=== PATIENT | female | born 1955 | race Caucasian/White ===

== ENCOUNTER → 2018-03-22 | Outpatient (CLI) | payer OTHER ==
[~2018-03-22] MED LIST: GADOBUTROL 10 ML VIAL IVP ONE
== END ==
LOC: FIMAGING 11:53
PROVIDERS: ATTEND Internal Medicine Hematology & Oncology
DX: Z08 Encounter for follow-up examination after completed treatment for malignant neoplasm (principal); Z85.3 Personal history of malignant neoplasm of breast
CPT/HCPCS: 0159T; A9585; C8908

== ENCOUNTER 2018-11-13 14:04 | Day surgery (SDC) | payer OTHER ==
--- NOTE | 2018-11-13 14:38 | EDPHY ---
H & P Stated Complaint: Low-grade fever x 2 days, chills, RLQ abdominal pain w/ nausea. Time Seen by Provider: 11/13/18 14:28 HPI/ROS: CHIEF COMPLAINT: Abdominal pain HISTORY OF PRESENT ILLNESS: 63-year-old female via private vehicle complaining right lower quadrant abdominal pain, anorexia since yesterday. Reproducible pain with palpation. Subjective fever. No back or flank pain. No urinary abnormality. No diarrhea. Passing gas as normal. Last oral intake was last evening PRIMARY CARE PROVIDER: REVIEW OF SYSTEMS: 10 systems reviewed and negative with the exception of the elements mentioned in the history of present illness PAST MEDICAL & SURGICAL HISTORY: Bilateral oophorectomy. Metastatic breast cancer. SOCIAL HISTORY: Nonsmoker . Local physician. PHYSICAL EXAM (Prior to examination, patient consented to physical exam, hands were washed and my usual and customary physical exam procedures followed) 1) GENERAL: [Well-developed, well-nourished, alert and oriented. Appears nontoxic 2) HEAD: Normocephalic, atraumatic 3) HEENT: Pupils equal, round, reactive to light bilaterally. Sclera anicteric. 4) NECK: Full range of motion, no meningeal signs. 5) LUNGS: Clear auscultation bilaterally, no wheezes, no rhonchi, no retractions. 6) HEART: Regular rate and rhythm, no murmur, no heave, no gallop. 7) ABDOMEN: No guarding, focally tender to palpation right lower quadrant, positive McBurney's, positive Rovsing's negative Wong's,, negative peritoneal sign, 8) MUSCULOSKELETAL: Moving all extremities, no focal areas of tenderness, no obvious trauma. No peripheral edema or discoloration. 9) BACK: No CVA tenderness, no midline vertebral tenderness, no fluctuance, no step-off, no obvious trauma, no visual or palpable abnormality. 10) SKIN: No rash, no petechiae. 11) Psychiatric: Patient is oriented X 3, there is no agitation. DIFFERENTIAL DIAGNOSIS: My differential diagnosis includes, but is not limited to, acute appendicitis, acute cholecystitis, bowel obstruction, acute pancreatitis, gastritis. The patient understands that this diagnosis is provisional and can never be 100% accurate. This is a partial list of diagnoses considered. These considerations are based on history, physical exam, past history and reassessment. - Personal History Current Tetanus Diphtheria and Acellular Pertussis (TDAP): Yes - Medical/Surgical History Hx Asthma: No Hx Chronic Respiratory Disease: No Hx Diabetes: No Hx Cardiac Disease: No Hx Renal Disease: No Hx Cirrhosis: No Hx Alcoholism: No Hx HIV/AIDS: No Hx Splenectomy or Spleen Trauma: No Other PMH: metastatic breast cancer in remission, bilateral oopherectomy 2009. - Social History Smoking Status: Never smoked Constitutional: Initial Vital Signs Temperature (C) 37.5 C 11/13/18 14:15 Heart Rate 89 11/13/18 14:15 Respiratory Rate 16 11/13/18 14:15 Blood Pressure 117/75 11/13/18 14:15 O2 Sat (%) 97 11/13/18 14:15 O2 Delivery Mode Room Air Allergies/Adverse Reactions: No Known Allergies Allergy (Unverified 04/19/09 08:19) Medical Decision Making - Diagnostics Imaging Results: Imaging Impressions Abdomen CT 11/13/18 15:03 Impression: 1. Acute appendicitis with periappendiceal inflammation and some appendicoliths along the proximal portion of the appendix. There is no mechanical bowel obstruction, free fluid, or rim-enhancing abscess. 2. Small inferior pericardial recess effusion. 3. 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 In this patient with a prior history of lobular breast cancer, if there is further clinical concern regarding occult osseous metastases, a bone scan could be considered. 4. Status post bilateral oophorectomies. Findings were discussed with Kellee Jha PA-C at 16:06, on 11/13/2018. ED Course/Re-evaluation: 4:08 p.m.: CT of the abdomen pelvis interpreted by staff radiologist, with images reviewed myself, conveyed to me at this time is positive for acute appendicitis without perforation or abscess. Multiple appendicoliths seen. Patient remains NPO since last night. Discussed the imaging results with the patient. Will initiate antibiotics, IV antibiotics and consult surgery. Care of patient under supervision of secondary supervising physician Dr Rondon with whom I discussed case. 4:20 p.m.: Phone consultation with Dr. Andi Damico who will come to the ER to evaluate patient. - Data Points Laboratory Results: Laboratory Results 11/13/18 14:40 11/13/18 14:40 11/13/18 11/13/18 11/13/18 15:06 14:51 14:40 WBC RBC Hgb POC Hgb 14.3 gm/dL gm/dL (12.6-16.3) Hct POC Hct 42 % % (38-47) MCV MCH MCHC RDW Plt Count MPV Neut % (Auto) Lymph % (Auto) [place] % (Auto) Eos % (Auto) Baso % (Auto) Nucleat RBC Rel Count Absolute Neuts (auto) Absolute Lymphs (auto) Absolute Monos (auto) Absolute Eos (auto) Absolute Basos (auto) Absolute Nucleated RBC Immature Gran % Immature Gran # POC Sodium 141 mEq/L mEq/L (135-145) Sodium 138 mEq/L mEq/L (135-145) POC Potassium 3.7 mEq/L mEq/L (3.3-5.0) Potassium 3.9 mEq/L mEq/L (3.5-5.2) POC Chloride 103 mEq/L mEq/L (97-110) Chloride 104 mEq/L mEq/L (97-110) Carbon Dioxide 26 mEq/l mEq/l (22-31) POC Total CO2 28 mEq/L mEq/L (22-31) Anion Gap 8 mEq/L mEq/L (6-14) POC BUN 8 mg/dL mg/dL (7-23) BUN 10 mg/dL mg/dL (7-23) Creatinine 0.6 mg/dL mg/dL (0.6-1.0) POC Creatinine 0.7 mg/dL mg/dL (0.6-1.0) Estimated GFR > 60 Glucose 85 mg/dL mg/dL (70-100) POC Glucose 89 mg/dL mg/dL (70-100) Calcium 9.4 mg/dL mg/dL (8.5-10.4) Total Bilirubin 1.5 mg/dL H mg/dL (0.1-1.4) Conjugated Bilirubin 0.0 mg/dL mg/dL (0.0-0.5) Unconjugated Bilirubin 1.5 mg/dL H mg/dL (0.0-1.1) AST 23 IU/L IU/L (14-46) ALT 28 IU/L IU/L (9-52) Alkaline Phosphatase 66 IU/L IU/L (38-126) Total Protein 6.8 g/dL g/dL (6.3-8.2) Albumin 4.1 g/dL g/dL (3.5-5.0) Lipase 592 IU/L H IU/L (23-300) Urine Color YELLOW Urine Appearance CLEAR Urine pH 7.0 (5.0-7.5) Ur Specific [place] 1.006 (1.002-1.030) Urine Protein NEGATIVE (NEGATIVE) Urine Ketones NEGATIVE (NEGATIVE) Urine Blood NEGATIVE (NEGATIVE) Urine Nitrate NEGATIVE (NEGATIVE) Urine Bilirubin NEGATIVE (NEGATIVE) Urine Urobilinogen NEGATIVE EU EU (0.2-1.0) Ur Leukocyte Esterase NEGATIVE (NEGATIVE) Urine RBC 1-3 /hpf /hpf (0-3) Urine WBC 1-3 /hpf /hpf (0-3) Ur Epithelial Cells NONE SEEN /lpf /lpf (NONE-1+) Urine Glucose NEGATIVE (NEGATIVE) 11/13/18 14:40 WBC 12.51 10^3/uL H 10^3/uL (3.80-9.50) RBC 4.84 10^6/uL 10^6/uL (4.18-5.33) Hgb 15.4 g/dL g/dL (12.6-16.3) POC Hgb Hct 42.5 % % (38.0-47.0) POC Hct MCV 87.8 fL fL (81.5-99.8) MCH 31.8 pg pg (27.9-34.1) MCHC 36.2 g/dL g/dL (32.4-36.7) RDW 12.6 % % (11.5-15.2) Plt Count 237 10^3/uL 10^3/uL (150-400) MPV 10.2 fL fL (8.7-11.7) Neut % (Auto) 81.3 % H % (39.3-74.2) Lymph % (Auto) 8.3 % L % (15.0-45.0) [place] % (Auto) 8.8 % % (4.5-13.0) Eos % (Auto) 0.9 % % (0.6-7.6) Baso % (Auto) 0.5 % % (0.3-1.7) Nucleat RBC Rel Count 0.0 % % (0.0-0.2) Absolute Neuts (auto) 10.17 10^3/uL H 10^3/uL (1.70-6.50) Absolute Lymphs (auto) 1.04 10^3/uL 10^3/uL (1.00-3.00) Absolute Monos (auto) 1.10 10^3/uL H 10^3/uL (0.30-0.80) Absolute Eos (auto) 0.11 10^3/uL 10^3/uL (0.03-0.40) Absolute Basos (auto) 0.06 10^3/uL 10^3/uL (0.02-0.10) Absolute Nucleated RBC 0.00 10^3/uL 10^3/uL (0-0.01) Immature Gran % 0.2 % % (0.0-1.1) Immature Gran # 0.03 10^3/uL 10^3/uL (0.00-0.10) POC Sodium Sodium POC Potassium Potassium POC Chloride Chloride Carbon Dioxide POC Total CO2 Anion Gap POC BUN BUN Creatinine POC Creatinine Estimated GFR Glucose POC Glucose Calcium Total Bilirubin Conjugated Bilirubin Unconjugated Bilirubin AST ALT Alkaline Phosphatase Total Protein Albumin Lipase Urine Color Urine Appearance Urine pH Ur Specific [place] Urine Protein Urine Ketones Urine Blood Urine Nitrate Urine Bilirubin Urine Urobilinogen Ur Leukocyte Esterase Urine RBC Urine WBC Ur Epithelial Cells Urine Glucose Medications Given: Ceftriaxone Sodium/Dextrose (Rocephin 1 Gm (Premix)) 50 mls @ 100 mls/hr IV EDNOW ONE PRN Reason: Protocol Stop: 11/13/18 16:40 Last Admin: 11/13/18 16:20 Dose: 50 mls Discontinued Medications Sodium Chloride (Ns) 1,000 mls @ 0 mls/hr IV ONCE ONE PRN Reason: Wide Open Stop: 11/13/18 16:06 Last Admin: 11/13/18 16:17 Dose: 1,000 mls Point of Care Test Results: Chemistry 11/13/18 14:51 POC Sodium 141 mEq/L mEq/L (135-145) POC Potassium 3.7 mEq/L mEq/L (3.3-5.0) POC Chloride 103 mEq/L mEq/L (97-110) POC Total CO2 28 mEq/L mEq/L (22-31) POC BUN 8 mg/dL mg/dL (7-23) POC Creatinine 0.7 mg/dL mg/dL (0.6-1.0) POC Glucose 89 mg/dL mg/dL (70-100) ISTAT H&H 11/13/18 14:51 POC Hgb 14.3 gm/dL gm/dL (12.6-16.3) POC Hct 42 % % (38-47) Departure - Departure Disposition: [facility] Inpatient Acute Clinical Impression: Acute appendicitis Qualifiers: Acute appendicitis type: with localized peritonitis Appendicitis gangrene presence: without gangrene Appendicitis perforation presence: without perforation Appendicitis abscess presence: without abscess Qualified Code(s): K35.30 - Acute appendicitis with localized peritonitis, without perforation or gangrene Condition: Fair Referrals: Michelle Calixto MD [Primary Care Provider] - As per Instructions
[2018-11-13 14:54] LABS: PLATELET COUNT 237 10^3/uL (150-400)
[2018-11-13] MEDS ORDERED: IOPAMIDOL (ISOVUE-300) 100 ML BTL ONE (15:17)
[2018-11-13] MEDS ORDERED: NS 1,000 ML IV ONE (16:05)
--- NOTE | 2018-11-13 17:41 | GDS ---
[f rep st] TRANSFER SUMMARY CHIEF COMPLAINT: Right lower quadrant pain. HISTORY OF PRESENT ILLNESS: A 63-year-old female with 24 hours of right lower quadrant pain. Nausea . CT documented acute appendicitis. ALLERGIES: None. CURRENT MEDICATIONS: Propranolol 10 mg p.o. daily. Letrozole for metastatic breast cancer. Gabapen tin 300 mg p.o. at bedtime, occasional Vicodin. PAST SURGICAL HISTORY: Left lumpectomy x3, BSO, laparoscopic, nonsmoker, nondrinker. 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 REVIEW OF SYSTEMS: Denies asthma, heart trouble, epilepsy, rheumatic fever, diabetes. Her only medi francesco condition is known metastatic breast cancer, which she states is in complete remission. PHYSICAL EXAM: GENERAL: Pleasant female in minimal distress. HEENT: No scleral icterus. Pharynx clear. NECK: Supple without adenopathy. LUNGS: Clear heart normal S1, S2 without murmur. ABDOMEN: Soft, benign, except for guarding and tenderness in the right lower quadrant with rebound. EXTREMITIES: Unremarkable. NEUROLOGIC: Unremarkable. ASSESSMENT: Acute appendicitis. PLAN: Laparoscopic appendectomy. Risks and benefits of the procedure were explained to the patient. She is anxious to proceed. /[id number]/MODL
[2018-11-13] MEDS ORDERED: ROCURONIUM 50 MG/5 ML VIAL ONE (17:54)
[2018-11-13] MEDS ORDERED: fentaNYL 100 MCG/2 ML INJ ONE (17:54)
[2018-11-13] MEDS ORDERED: SUCCINYLCHOLINE CHLORIDE 200 MG/10 ML SYR IVP ONE (17:54)
[2018-11-13] MEDS ORDERED: PROPOFOL 200 MG/20 ML VIAL ONE (17:54)
[2018-11-13] MEDS ORDERED: ONDANSETRON 4 MG/2 ML VIAL ONE ×2 (17:55→18:14)
[2018-11-13] MEDS ORDERED: DEXAMETHASONE 4 MG/ML VIAL ONE (17:55)
[2018-11-13] MEDS ORDERED: LIDOCAINE 2% 2 ML INJ ONE ×3 (17:55)
[2018-11-13] MEDS ORDERED: KETOROLAC 30 MG/1 ML SDV ONE (17:55)
[2018-11-13] MEDS ORDERED: ONDANSETRON 4 MG/2 ML VIAL IVP ONE (18:15)
--- NOTE | 2018-11-13 18:15 | PDANEPAE ---
ANE History of Present Illness lap appy ANE Past Medical History - Cardiovascular History Hx Hypertension: No Hx Arrhythmias: No Hx Chest Pain: No Hx Coronary Artery / Peripheral Vascular Disease: No Hx CHF / Valvular Disease: No Hx Palpitations: No Cardiovascular History Comment: occ PACs - Pulmonary History Hx COPD: No Hx Asthma/Reactive Airway Disease: No Hx Recent Upper Respiratory Infection: No Hx Oxygen in Use at Home: No Hx Sleep Apnea: No - Neurologic History Hx Cerebrovascular Accident: No Hx Seizures: No Hx Dementia: No - Endocrine History Hx Diabetes: No Hypothyroid: No Hyperthyroid: No Obesity: no - Renal History Hx Renal Disorders: No - Liver History Hx Hepatic Disorders: No ANE Review of Systems Review of Systems: - Exercise capacity Exercise capacity: >=4 METS ANE Patient History - Allergies Allergies/Adverse Reactions: No Known Allergies Allergy (Unverified 04/19/09 08:19) - Home Medications Home medications: home medication list seen and reviewed Home Medications: Herbals/Supplements -Info Only 1 ea PO DAILY 11/13/18 [Last Taken 11/13/18] Hydrocodone/APAP 5/325 [Arco 5/325 (*)] 0.5 each PO BID PRN 11/13/18 [Last Taken 11/13/18 09:00] Letrozole [Femara 2.5 mg (*)] 2.5 mg PO HS 11/13/18 [Last Taken 11/12/18] Propranolol HCl [Inderal 10mg (*)] 5 mg PO DAILY 11/13/18 [Last Taken 11/13/18] - NPO status NPO Status: no food or drink >8 hours NPO Since - Liquids (Date): 11/13/18 NPO Since - Liquids (Time): 13:00 NPO Since - Solids (Date): 11/12/18 NPO Since - Solids (Time): 22:00 - Anes Hx Anes Hx: no prior problems - Smoking Hx Smoking Status: Never smoked ANE Labs/Vital Signs - Labs Result Diagrams: 11/13/18 14:40 11/13/18 14:40 - Vital Signs Blood Pressure: 122/94 Heart Rate: 87 Respiratory Rate: 18 O2 Sat (%): 100 Height: 153.67 cm Weight: 50.802 kg ANE Physical Exam - Airway Mallampati Score: Class 2 Mouth exam: normal dental/mouth exam - Pulmonary Pulmonary: no respiratory distress - Cardiovascular Cardiovascular: regular rate and rhythym - ASA Status ASA Status: II, E ANE Anesthesia Plan Anesthesia Plan: general endotracheal anesthesia
[2018-11-13] MEDS ORDERED: MIDAZOLAM 2 MG/2 ML VIAL IVP ONE (18:16)
[2018-11-13] MEDS ORDERED: BUPIVACAINE/EPI 0.5% 30 ML SDV ONE (18:25)
[2018-11-13] MEDS ORDERED: MIDAZOLAM 2 MG/2 ML VIAL ONE (18:27)
[2018-11-13] MEDS ORDERED: ePHEDrine SULFATE 25 MG/5 ML SYR ONE (18:52)
[2018-11-13] MEDS ORDERED: SUGAMMADEX SODIUM 200 MG/2 ML VIAL IVP ONE (19:04)
[2018-11-13] MEDS ORDERED: NALOXONE HCL 0.4 MG/ML INJ IVP PRN (19:05)
[2018-11-13] MEDS ORDERED: ACETAMINOPHEN 500 MG TAB PO PRN (19:05)
[2018-11-13] MEDS ORDERED: ONDANSETRON 4 MG/2 ML VIAL IVP PRN (19:05)
[2018-11-13] MEDS ORDERED: fentaNYL 100 MCG/2 ML INJ IVP PRN (19:05)
[2018-11-13] MEDS ORDERED: LR 500 ML IV PRN (19:05)
[2018-11-13] MEDS ORDERED: PROMETHAZINE HCL 25 MG/ML INJ IVP PRN (19:05)
[2018-11-13] MEDS ORDERED: HYDROCODONE/APAP 5/325 TAB PO PRN (19:05)
[2018-11-13] MEDS ORDERED: ALBUTEROL 3 ML DEYVIAL IH PRN (19:05)
[2018-11-13] MEDS ORDERED: oxyCODONE IR 5 MG TAB PO PRN (19:05)
[2018-11-13] MEDS ORDERED: HYDROmorphONE/DILAUDID 1 MG/ML INJ IVP PRN (19:05)
--- NOTE | 2018-11-13 19:21 | POSTANESTH ---
Post Anesthetic Evaluation Cardiovascular Status: Normal, Stable Respiratory Status: Normal, Stable Level of Consciousness/Mental Status: Can Participate in Eval Pain Control: Adequate, Prn Tx Ordered Nausea/Vomiting Control: Adequate, Prn Tx Ordered Complications Possibly Related to Anesthesia: None Noted
--- NOTE | 2018-11-13 19:22 | POSTOPPROG ---
Post Op Note Date of Operation: 11/13/18 Surgeon: Andi Damico Anesthesiologist: lucy Anesthesia: GET(General Endotracheal) Pre-op Diagnosis: acute appy Post-op Diagnosis: same Indication: same Procedure: lap appy Findings: acute appy Inf/Abcess present in the surg proc area at time of surgery?: No
[2018-11-13] MEDS ORDERED: HYDROCODONE/APAP 5/325 TAB ONE (20:13)
[2018-11-13 21:13] VITALS: BP 134/80
== END 2018-11-13 20:55 | disposition home or self-care (01) ==
LOC: UNDOADMOB 16:21 → FSGY 16:21 → UNDODISOB 20:55
PROVIDERS: ATTEND Surgery
PROC: 0DTJ4ZZ Resection of Appendix, Percutaneous Endoscopic Approach (ICD-10-PCS; principal; 2018-11-13 18:30)
DX: K35.80 Unspecified acute appendicitis (principal); Z85.3 Personal history of malignant neoplasm of breast
CPT/HCPCS: 82435-PO; 82565-PO; 82947-PO; 84132-PO; 84295-PO; 84520-PO; 85014-ER; 96374; J0330; J0696; J1100; J1885; J2250; J2270; J2405; J2704; J3010; Q9967